=== PATIENT | male | born 1940 | race Caucasian/White ===

== ENCOUNTER → 2017-05-02 | Outpatient (CLI) | payer MEDICARE, OTHER ==
[~2017-05-02] MED LIST: ADVIL200 MG PO; ASPIRIN EC81 MG PO; BENTYL10 MG PO; CIPRO 500MG TA500 MG PO; FINASTERIDE5 M1 PO; FLAGYL 500MG.500 MG PO; FLOMAX 0.4MG C0.4 MG PO; LANSOPRAZOLE30 MG PO; NIASPAN750 MG PO; OMNICEF 300 MG300 MG PO; ZITHROMAX Z-PA250 M2 PO
--- NOTE | 2017-05-02 12:49 | RADIOLOGY REPORT PS360 ---
ABDOMEN-FLAT UPRIGHT HISTORY: PERIPHERAL EDEMA,BELCHING,CONSTIPATION ORDERING PHYSICIAN: Jesus Donis MD PATIENT AGE: 77 years COMPARISON: None FINDINGS: Gas pattern is nonspecific. No evidence of intestinal obstruction or free air. There are gas-filled loops of small and large bowel some which contain air-fluid levels. The bowel loops do not appear distended. Ileus or enteritis is considered. There are surgical clips in right upper quadrant. IMPRESSION: Possible ileus or enteritis.
--- NOTE | 2017-05-02 12:53 | RADIOLOGY REPORT PS360 ---
CHEST(2 VIEWS-NOT PORTABLE) HISTORY: PERIPHERAL EDEMA,BELCHING,CONSTIPATION ORDERING PHYSICIAN: Jesus Donis MD PATIENT AGE: 77 years COMPARISON: None available FINDINGS: The cardiomediastinal silhouette and pulmonary vascularity are within normal limits. No lobar consolidation or collapse is evident. On the lateral view there is an ill-defined 13 mm opacity overlying the T11 vertebral body. A developing pulmonary nodule is a consideration. Summation artifact is also considered. The remaining lungs are clear. No acute bony anomalies. IMPRESSION: 1. No acute finding. 2. 13 mm opacity overlies the T11 vertebral body on the lateral view. This may represent summation artifact, pulmonary nodule, or even overlying sclerotic lesion of the vertebral body. CT may be of further value if clinically desired.
== END ==
LOC: RAD 12:03
DX: R60.9 Edema, unspecified (principal); K59.00 Constipation, unspecified; R14.2 Eructation